=== PATIENT | male | born 1965 | race American Indian/Alaskan Native ===

== ENCOUNTER 2016-09-29 12:02 | Emergency (ER) | payer OTHER ==
[2016-09-29 12:17] VITALS: BP 147/104
--- NOTE | 2016-09-29 14:02 | XRay Report ---
Left shoulder 3 views. Findings: There are no fractures or other acute findings. There is an ovoid shaped calcification adjacent to the left humeral head, probably related to calcific bursitis or tendinitis. There are no other significant findings.
[2016-09-29] MEDS ORDERED: TORADOL IM ONE (14:49)
--- NOTE | 2016-09-29 14:53 | Emergency Department Report ---
HPI - General Chief Complaint: Shoulder Injury Time Seen by Provider: 09/29/16 14:48 - HPI HPI: 51-year-old -[place] male with a history of hypertension comes in today for left shoulder pain that started 2 days ago. Patient reports that he was driving from [place] to [facility] in his truck laid in the back where he made an area for sleep laid on his left shoulder woke up this morning with difficulty elevating the shoulder. Patient has no other complaints at this time. ED Past Medical Hx - Past Medical History Previous Medical History?: Yes Hx Hypertension: Yes - Surgical History Past Surgical History?: No - Social History Smoking Status: Current Every Day Smoker Substance Use Type: Alcohol, Other - Medications Home Medications: Home Medications Medication Instructions Recorded Confirmed Last Taken Type Aspirin 81 mg PO DAILY 09/29/16 09/29/16 09/29/16 History Hydrochlorothiazide [HCTZ] 12.5 mg PO QDAY 09/29/16 09/29/16 09/29/16 History Ketorolac [Toradol] 10 mg PO Q6H PRN #20 tablet 09/29/16 Unknown Rx Lisinopril [Zestril TAB] 1 tab PO DAILY 09/29/16 09/29/16 09/29/16 History amLODIPine [Norvasc] 10 mg PO DAILY 09/29/16 09/29/16 09/29/16 History ED Review of Systems ROS: Stated complaint: LT SHOULDER PAIN Other details as noted in HPI Physical Exam - Physical Exam Vital Signs: Vital Signs 09/29/16 12:14 Temperature 98.4 F Pulse Rate 75 Respiratory 20 Rate Blood Pressure 147/104 O2 Sat by Pulse 97 Oximetry Physical Exam: GENERAL: Alert and oriented x3, no apparent distress, Normal Gait, atraumatic. HEAD: Head is normocephalic and a-traumatic. EYES: Extra ocular muscles are intact. Pupils are equal, round, and reactive to light and accommodation. EXTREMITIES/MUSCULOSKELETAL: No cyanosis, clubbing, rash, lesions or edema. Full ROM bilaterally. UE/LE Pulses 2+ bilaterally. LE and UE 5+ strength bilaterally NEUROLOGIC: No focal Deficit, Cranial nerves II through XII are grossly intact. No loss of sensation, No facial droop, Negative rhomberg. PSYCHIATRIC: Mood is congruent with affect, SKIN: Warm and dry, No lesions, No ulceration or induration present ED Course Vital Signs 09/29/16 12:14 Temperature 98.4 F Pulse Rate 75 Respiratory 20 Rate Blood Pressure 147/104 O2 Sat by Pulse 97 Oximetry ED Medical Decision Making - Radiology Data Radiology results: report reviewed, image reviewed Left shoulder 2 view: Findings: There are no fractures or other acute findings. There is an ovoid shaped calcification adjacent to the left humeral head, probably related to calcific bursitis or tendinitis. There are no other significant findings - Medical Decision Making Patient has been evaluated by this provider in fast track Toradol injection given to patient x-rays been done we would discharge patient with a referral to orthopedics pain medication. Critical care attestation.: If time is entered above; I have spent that time in minutes in the direct care of this critically ill patient, excluding procedure time. ED Disposition Clinical Impression: Chronic shoulder bursitis Qualifiers: Laterality: left Qualified Code(s): M75.52 - Bursitis of left shoulder Disposition: DISCHARGED TO HOME OR SELFCARE Is pt being admited?: No Does the pt Need Aspirin: No Condition: Stable Instructions: Shoulder Bursitis (ED) Additional Instructions: Take pain medication as prescribed. Follow up with the orthopedic that were are referring you to. As well as her primary care provider. Prescriptions: Ketorolac [Toradol] 10 mg PO Q6H PRN #20 tablet PRN Reason: Pain Referrals: PRIMARY CAREMD [Primary Care Provider] - 3-5 Days NANCY SETH MD [Staff Physician] - 3-5 Days Forms: Work/School Release Form(ED)
== END 2016-09-29 15:47 | disposition home or self-care (01) ==
LOC: ED 12:02
DX: M75.52 Bursitis of left shoulder (principal); I10 Essential (primary) hypertension; F17.200 Nicotine dependence, unspecified, uncomplicated; Z79.82 Long term (current) use of aspirin
CPT/HCPCS: 73030; 96372; 99283; J1885